=== PATIENT | male | born 1960 | race Two or more races ===

== ENCOUNTER 2021-08-21 01:27 | Inpatient (IN) | payer BC, OTHER ==
[~2021-08-21] VITALS: Ht 167.6 cm; Wt 65.8 kg
[2021-08-21] MEDS ORDERED: PANTOPRAZOLE 80 MG in IV NS 0.9% 100 ML IV ONE (02:00)
[2021-08-21] MEDS ORDERED: ONDANSETRON HCL/PF 4 MG/2 ML VIAL IVP ONE (02:00)
[2021-08-21] MEDS ORDERED: IV NS 0.9% 500 ML BAG IV ONE (02:00)
--- NOTE | 2021-08-21 02:00 | NUR ---
PATIENT BIBRA89 FROM HOME C/O "VOMITTING CLOTTED BRIGHT RED BLOOD" GIVEN 4MG ZOFRAN IVP QUALITY ASSURANCE GROUP LEADER. PT IS A/O X 4, RR EVEN AND UNLABORED. PT VSS. PATIENT CONNECTED TO MONITORS.
[2021-08-21] MEDS ORDERED: PANTOPRAZOLE 40 MG VIAL ONE (02:11)
[2021-08-21] MEDS ORDERED: ONDANSETRON HCL/PF 4 MG/2 ML VIAL ONE ×2 (02:11→04:12)
--- NOTE | 2021-08-21 02:19 | NUR ---
PT TAKEN TO CT VIA [facility]ACELI
[2021-08-21 02:32] LABS: BASOPHILS # (AUTO) 0.1 K/uL (0.0-0.2); BASOPHILS % (AUTO) 0.3 % (0.0-2.0); EOSINOPHILS % (AUTO) 0.1 % (0.0-6.0); HEMATOCRIT 30 % (39-51); HEMOGLOBIN 9.8 g/dL (13.5-17.5); LYMPHOCYTES # (AUTO) 1.7 K/uL (0.8-4.8); LYMPHOCYTES % (AUTO) 6.8 % (20.0-44.0); MEAN CORPUSCULAR HGB CONC 33 g/dl (31.0-36.0); MEAN CORPUSCULAR VOLUME 93 fL (80-96); MONOCYTES # (AUTO) 1.4 K/uL (0.1-1.30); MONOCYTES % (AUTO) 5.6 % (2.0-12.0); NEUTROPHILS # (AUTO) 22.2 K/uL (1.8-8.9); NEUTROPHILS % (AUTO) 87.2 % (43.0-81.0); PLATELET COUNT (AUTO) 549 K/uL (150-450); RED BLOOD CELL COUNT(AUTO) 3.21 MIL/uL (4.5-6.0); WHITE BLOOD COUNT (AUTO) 25.5 K/uL (4.3-11.0)
--- NOTE | 2021-08-21 02:53 | NUR ---
UPDATED PT SAWRI () [phone]. PER , PT DOES NOT TAKE HOME MEDS
--- NOTE | 2021-08-21 03:00 | NUR ---
MRSA SWAB COLLECTED AND SENT TO LAB. PATIENT'S BELONGINGS LIST DONE.
[2021-08-21 03:41] LABS: ALBUMIN 2.7 g/dL (3.4-5.0); BILIRUBIN,DIRECT 0.1 mg/dL (0.0-0.2); BILIRUBIN,TOTAL 0.2 mg/dL (0.2-1.0); CALCIUM, SERUM 8.4 mg/dL (8.5-10.1); TOTAL PROTEIN, SERUM 5.6 g/dL (6.4-8.2)
[2021-08-21 03:52] LABS: POTASSIUM 6.3 mmol/L (3.5-5.1)
[2021-08-21] MEDS ORDERED: INSULIN REGULAR, HUMAN 100 UNIT/ML 10 ML VIAL ONE (03:59)
[2021-08-21] MEDS ORDERED: SODIUM BICARBONATE SYR 50 MEQ/50 ML DISP.SYRIN ONE (03:59)
[2021-08-21] MEDS ORDERED: CALCIUM CHLORIDE 1,000 MG/10 ML DISP.SYRIN ONE (03:59)
[2021-08-21] MEDS ORDERED: DEXTROSE 50%-WATER 50 ML DISP.SYRIN ONE (03:59)
[2021-08-21] MEDS ORDERED: DEXTROSE 50%-WATER 50 ML DISP.SYRIN IV ONE (04:00)
[2021-08-21] MEDS ORDERED: SODIUM BICARBONATE SYR 50 MEQ/50 ML DISP.SYRIN IV ONE ×4 (04:00→19:16)
[2021-08-21] MEDS ORDERED: ALBUTEROL FS 2.5 MG/3 ML VIAL.NEB NEB ONE (04:00)
[2021-08-21] MEDS ORDERED: INSULIN REGULAR, HUMAN 100 UNIT/ML 10 ML VIAL IV ONE (04:00)
[2021-08-21] MEDS ORDERED: CALCIUM CHLORIDE 1,000 MG/10 ML DISP.SYRIN IV ONE (04:00)
[2021-08-21] MEDS ORDERED: ALBUTEROL FS 2.5 MG/3 ML VIAL.NEB ONE (04:01)
[2021-08-21] MEDS ORDERED: ONDANSETRON HCL/PF 4 MG/2 ML VIAL IV ONE (04:30)
--- NOTE | 2021-08-21 04:48 | NUR ---
TELE 310-1
[2021-08-21] MEDS ORDERED: Z GUARD REMEDY 4 OZ OINT TP PRN (05:00)
[2021-08-21] MEDS ORDERED: MAG HYDROX/AL HYDROX/SIMETH 30 ML UDC PO PRN (05:00)
[2021-08-21] MEDS ORDERED: IV NS 0.9% 1,000 ML IV PRN (05:00)
[2021-08-21] MEDS ORDERED: ACETAMINOPHEN 650 MG/SUPP.RECT RC PRN (05:00)
[2021-08-21] MEDS ORDERED: CEFTRIAXONE 1 G in IV D5W 50 ML IV SCH (05:00)
[2021-08-21] MEDS ORDERED: ONDANSETRON HCL/PF 4 MG/2 ML VIAL IVP PRN (05:00)
[2021-08-21] MEDS ORDERED: MAGNESIUM HYDROXIDE 30 ML UDC PO PRN (05:00)
--- NOTE | 2021-08-21 05:21 | NUR ---
REPORT GIVEN TO CAMILO LINO FOR ALVARO
[2021-08-21] MEDS ORDERED: CEFTRIAXONE 1GM BAG (ER ONLY) 50 ML IV ONE (05:55)
--- NOTE | 2021-08-21 06:35 | NUR ---
PATIENT TRANSFERRED UNDER ACLS.
--- NOTE | 2021-08-21 06:35 | NUR ---
RN ADMITTING NOTE PATIENT ADMITTED FROM ER TO TELE D/T UPPER GI BLEED AND SEPSIS. PATIENT IS A/O X 4 ABLE TO MAKE NEEDS KNOWN. CURRENTLY ON RA TOLERATING WELL AT 97% O2 SAT. TELE MONITOR READS ST 110 BPM. NO VOMITING AT THIS TIME. PATIENT'S SKIN IS INTACT. LAC 18 G PATENT AND INTACT WITH IVF RUNNING WELL. BP 77/60 THEN RECHECKED AFTER 30 MIN 100/52 NOW. PATIENT WISHES TO BE FULL CODE. ORIENTED PATIENT TO ROOM RNDEE. WILL ENDORSE TO DAY SHIFT NURSE.
[2021-08-21 07:24] LABS: CALCIUM, SERUM 9.1 mg/dL (8.5-10.1); CREATININE 1.2 mg/dL (0.6-1.3); POTASSIUM 4.4 mmol/L (3.5-5.1)
--- NOTE | 2021-08-21 07:30 | NUR ---
VACATION GUIDE NOTES PT IN BED, RESTING, AWAKE, ALERT AND ORIENTED, DENIES PAIN, COMPLAINS OF FEELING WEAK, NO ACTIVE BLEEDING AT THIS TIME, IV FLUIDS INFUSING WELL, CALL LIGHT WITHIN REACH, KEPT COMFORTABLE.
[2021-08-21] MEDS ORDERED: INSU100I30 SUBCUT (07:33)
[2021-08-21] MEDS ORDERED: LITH300C2 PO (07:33)
[2021-08-21] MEDS ORDERED: TRAZ-257 PO (07:33)
[2021-08-21] MEDS ORDERED: ESCI20TA PO (07:33)
[2021-08-21 08:00] VITALS: BP 92/54
[2021-08-21 08:27] LABS: HEMOGLOBIN 7.6 g/dL (13.5-17.5)
[2021-08-21] MEDS ORDERED: PANTOPRAZOLE 40 MG VIAL IV SCH (09:00)
--- NOTE | 2021-08-21 10:46 | NUR ---
CHARGE AUTHORIZER NOTES PT IN BED, RESTING, AT BEDISDE, PT SEEN AND EXAMINED BY DR. CORNELIUS, PLAN OF CARE DISCUSSED WITH PT, VERBALIZED UNDERSTANDING, ORDERS GIVEN, NOTED AND CARRIED OUT.
[2021-08-21 10:57] LABS: BASOPHILS # (AUTO) 0.1 K/uL (0.0-0.2); BASOPHILS % (AUTO) 0.2 % (0.0-2.0); EOSINOPHILS % (AUTO) 0.1 % (0.0-6.0); LYMPHOCYTES # (AUTO) 2.1 K/uL (0.8-4.8); LYMPHOCYTES % (AUTO) 7.5 % (20.0-44.0); MEAN CORPUSCULAR HGB CONC 32 g/dl (31.0-36.0); MEAN CORPUSCULAR VOLUME 94 fL (80-96); MONOCYTES # (AUTO) 1.5 K/uL (0.1-1.30); MONOCYTES % (AUTO) 5.3 % (2.0-12.0); NEUTROPHILS % (AUTO) 86.9 % (43.0-81.0); PLATELET COUNT (AUTO) 470 K/uL (150-450); RED BLOOD CELL COUNT(AUTO) 2.01 MIL/uL (4.5-6.0); WHITE BLOOD COUNT (AUTO) 27.6 K/uL (4.3-11.0)
[2021-08-21 11:37] LABS: HEMOGLOBIN 6.1 g/dL (13.5-17.5)
[2021-08-21 11:38] LABS: HEMATOCRIT 19 % (39-51)
--- NOTE | 2021-08-21 11:54 | NUR ---
received critical HH result, new order for blood transfusion received.
[2021-08-21 13:00] VITALS: BP 118/72
--- NOTE | 2021-08-21 13:00 | NUR ---
INTEGRATION CONSULTANT NOTES PT IN BED, RESTING, ALERT AND ORIENTED, AT BEDSIDE, IV BOLUS INFUSING, NO COMPLAINT OF PAIN OR ANY DISCOMFORT, VITAL SIGNS RECHECKED AND RECORDED, AWAITING FOR BLOOD.
[2021-08-21 13:34] LABS: LYMPHOCYTES % (MANUAL) 5 % (16-48); MONOCYTES % (MANUAL) 4 % (0-11.0); NEUTROPHILS % (MANUAL) 91 (42-76)
--- NOTE | 2021-08-21 13:55 | NUR ---
ICU/RN PT IS IN TELE UNIT ROOM 310.UNRESPONSIVE.CODE BLUE INITIATED.ER MD AT BEDSIDE.SEE CODE KAYLA RECORD.
[2021-08-21] MEDS ORDERED: TRANEXAMIC ACID 1,000 MG in IV NS 0.9% 100 ML IV ONE (14:00)
[2021-08-21] MEDS ORDERED: EPINEPHRINE (1:1000) 5 MG in IV NS 0.9% 250 ML IV PRN (15:00)
[2021-08-21] MEDS ORDERED: EPINEPHRINE (1:1000) 10 MG in IV NS 0.9% 240 ML IV PRN (15:00)
[2021-08-21] MEDS ORDERED: SUCCINYLCHOLINE CHLORIDE 20 MG/ML VIAL IV ONE (15:09)
[2021-08-21] MEDS ORDERED: EPINEPHRINE (1:10,000) SYRINGE 1 MG/10 ML DISP.SYRIN IVP ONE ×2 (15:09→19:16)
[2021-08-21] MEDS ORDERED: ETOMIDATE 2 MG/ML VIAL IV ONE (15:09)
--- NOTE | 2021-08-21 15:20 | NUR ---
HYDRAULIC AUTO JACK MECHANIC NOTES AT 1355 PT FOUND UNRESPONSIVE, NO PULSE NOTED, CODE BLUE INITIATED, CODE BLUE TEAM ARRIVED, DR. LACEY CAME AND AND LEAD THE CODE, RT'S AND RN'S PRESENT IN PT'S ROOM TO ASSIST, CHEST COMPRESSION STARTED, PT HAD EPISODES OF PEA'S, MULTIPLE EPINEPHRINE IV PUSHES ADMINISTERED ORDERED OVER CYCLES OF PULSE CHECKS AND COMPRESSIONS, PT WAS GIVEN 2 BAGS OF PRBC, PT INTUBATED AND CENTRAL LINE WAS PLACED, PT STARTED ON EPINEPHRINE DRIP, AT 1458 ROSC WAS ACHIEVED WITH BP OF 66/14 HR 60, PT WAS TRANSFERED TO ICUIN ROOM 253 BY RN'S AND RT'S WITH ALL BELONGINGS, DR. CORNELIUS INFORMED AND CAME TO SEE PT, DR. LACEY SPOKE WITH PT'S .
--- NOTE | 2021-08-21 15:20 | NUR ---
ICU/RN AFTER 1 HR OF CODE BLUE .PT TRANSFERRED TO ICU UNIT. PT IS INTUBATED ON THE VENT AC MODE ,FIO2-100%.ON EPINEPHRINE DRIP STARTED DURING THE CODE.RIGHT FEMORAL TLC INSERTED.SECOND UNIT OF PRBC RAPIDLY INFUSING ORDERED. 2 L NS BOLUS IV GIVEN ORDERED.PT HAS NOSE ,ORAL UPPER GI BLEED AND BLEEDING FROM THE THE RECTUM.F/C INSERTED WITH MINIMUM URINE OUTPUT.OG TUBE PLACED AND CONNECTED TO LOW INTERMEDIATE SUCTION.DR ADRYAN SpanglerAT BEDSIDE. MORE BLOOD ORDERED,WAITING FOR FFP.
--- NOTE | 2021-08-21 15:46 | NUR ---
intubated @ 1400 by ER doctor for post cardiac arrest with 7.5 ET tube secured @ 22 cm lipline. CO2 detector changed to yellow color with breath sounds coarse rhonchi bilateral post intubation. vent parameters below per dr. Chase: AC 18 VT 400 FIO2 100% PEEP +5 vent plugged into red outlet with alarms on and functioning. lovely @ bedside. Addendum: 08/21/21 at 1554 by TIMOTHY HANEY RT Amended: Links added.
[2021-08-21] MEDS ORDERED: VASOPRESSIN INJ 40 UNIT in IV NS 0.9% 38 ML IV PRN (16:00)
[2021-08-21] MEDS ORDERED: OCTREOTIDE 1,250 MCG in IV NS 0.9% 247.5 ML IV PRN (16:00)
[2021-08-21] MEDS ORDERED: NOREPINEPHRINE 8 MG in IV NS 0.9% 242 ML IV PRN ×4 (16:00)
[2021-08-21] MEDS ORDERED: PHENYLEPHRINE 50 MG in IV NS 0.9% 245 ML IV PRN (16:30)
[2021-08-21 16:41] VITALS: BP 59/37
[2021-08-21 16:47] VITALS: BP 52/22
[2021-08-21] MEDS ORDERED: NOREPINEPHRINE 32 MG in IV NS 0.9% 250 ML IV PRN (17:00)
--- NOTE | 2021-08-21 17:04 | NUR ---
ICU/RN PT IS ON EPINEPHRINE ,LEVOPHED ,VASOPRESSIN,SANDOSTATIN DRIPS,NO BLOOD PRESSURE.NEOSYNEPHRINE DRIP ORDERED AND STARTED.4 UNITS TOTAL OF PRBC GIVEN.PT IS NOT RESPONSIVE.NO BLOOD PRESSURE.FAMILY AT BED SIDE. DR CORNELIUS TALK TO THE FAMILY .PT IS FULL CODE.
[2021-08-21 18:09] LABS: BASOPHILS % (AUTO) 0.3 % (0.0-2.0); EOSINOPHILS % (AUTO) 0.4 % (0.0-6.0); LYMPHOCYTES # (AUTO) 2.3 K/uL (0.8-4.8); LYMPHOCYTES % (AUTO) 15.7 % (20.0-44.0); MEAN CORPUSCULAR HGB CONC 31 g/dl (31.0-36.0); MEAN CORPUSCULAR VOLUME 98 fL (80-96); MONOCYTES # (AUTO) 0.4 K/uL (0.1-1.30); MONOCYTES % (AUTO) 2.7 % (2.0-12.0); NEUTROPHILS # (AUTO) 11.8 K/uL (1.8-8.9); NEUTROPHILS % (AUTO) 80.9 % (43.0-81.0); PLATELET COUNT (AUTO) 78 K/uL (150-450); WHITE BLOOD COUNT (AUTO) 14.6 K/uL (4.3-11.0)
[2021-08-21 18:10] LABS: RED BLOOD CELL COUNT(AUTO) 1.66 MIL/uL (4.5-6.0)
[2021-08-21 18:14] LABS: HEMATOCRIT 16 % (39-51)
--- NOTE | 2021-08-21 18:20 | NUR ---
vent changes below per dr. jones: AC 28 VT 500 ML Addendum: 08/21/21 at 1820 by TIMOTHY HANEY RT Amended: Links added.
--- NOTE | 2021-08-21 18:28 | NUR ---
no PEEP due to low BP. Addendum: 08/21/21 at 1828 by TIMOTHY HANEY RT Amended: Links added.
[2021-08-21] MEDS ORDERED: Sodium Bicarbonate 150 MEQ in IV D5W 1,000 ML IV PRN (18:30)
--- NOTE | 2021-08-21 18:30 | NUR ---
ICU/RN PT IS ON ALL PRESSORS MAXIMUM DOSE .ABG DONE.MD NOTIFIED.2 AMPS OF BICARB ORDERED.NO BP.PEA.CODE BLUE STARTED.SEE CODE BLUE RECORD.
[2021-08-21 18:33] LABS: LYMPHOCYTES % (MANUAL) 16 % (16-48); MONOCYTES % (MANUAL) 3 % (0-11.0); NEUTROPHILS % (MANUAL) 81 (42-76)
[2021-08-21 18:43] VITALS: BP 52/22
[2021-08-21 18:47] VITALS: BP 41/22
--- NOTE | 2021-08-21 19:50 | NUR ---
ICU/RN PT PRONOUNCED BY DR OCHOA. DR CORNELIUS NOTIFIED.FAMILY AT BEDSIDE.NO MORTUARY ARRANGEMENT.BODY WILL GO TO [facility]. SISTER MARTHA [phone]. PT IS LESS THEN 24 HRS FROM ADMITTING.[facility]ON[facility] OFFICE NOTIFIED.THIS NOT A CASE. [facility] NOTIFIED. CASE # [id number],AKHIL. POST MORTEM CARE DONE.BODY TRANSFERRED TO THE [facility]
--- NOTE | 2021-08-21 20:31 | NUR ---
RN NOTES FAMILY TOOK PT'S NECKLACE. 1 METAL BRACELET LEFT ON PT'S RIGHT ARM.
== END 2021-08-21 20:30 | DRG 378 ==
LOC: ER 01:30 → TELE 04:48 → ICU 15:33
PROC: 30233N1 Transfusion of Nonautologous Red Blood Cells into Peripheral Vein, Percutaneous Approach (ICD-10-PCS; principal; 2021-08-21)
PROC: 30233K1 Transfusion of Nonautologous Frozen Plasma into Peripheral Vein, Percutaneous Approach (ICD-10-PCS; 2021-08-21)
PROC: 0BH18EZ Insertion of Endotracheal Airway into Trachea, Via Natural or Artificial Opening Endoscopic (ICD-10-PCS; 2021-08-21)
PROC: 06HY33Z Insertion of Infusion Device into Lower Vein, Percutaneous Approach (ICD-10-PCS; 2021-08-21)
PROC: 5A12012 Performance of Cardiac Output, Single, Manual (ICD-10-PCS; 2021-08-21)
PROC: 5A1935Z Respiratory Ventilation, Less than 24 Consecutive Hours (ICD-10-PCS; 2021-08-21)
DX: K92.2 Gastrointestinal hemorrhage, unspecified (principal); D62 Acute posthemorrhagic anemia; K63.2 Fistula of intestine; E87.5 Hyperkalemia; Z85.01 Personal history of malignant neoplasm of esophagus; Z92.3 Personal history of irradiation; Z92.21 Personal history of antineoplastic chemotherapy; Z20.822 Contact with and (suspected) exposure to COVID-19; D75.839 Thrombocytosis, unspecified; D72.829 Elevated white blood cell count, unspecified; R57.8 Other shock; I10 Essential (primary) hypertension
CPT/HCPCS: 31720; 36415; 36600; 71045-TC; 80048-TC; 80076-TC; 82803-TC; 83690-TC; 84484-TC; 85025-TC; 85027-TC; 85610-TC; 85730-TC; 86850-TC; 87081-TC; 94002-TC; 94799-TC; C9113; C9803; G0378; J0171; J0330; J0696; J1815; J2354; J2370; J2405; J3490; J7030; J7040; J7050; J7060; J7070; P9016; P9017